=== PATIENT | female | born 1960 | race Caucasian/White ===

== ENCOUNTER → 2024-11-20 13:33 | Outpatient (REF) | payer OTHER, SELFPAY | LOC: RAD 13:33 | PROVIDERS: ATTENDING PHYSICIAN Internal Medicine; FAMILY PHYSICIAN Family Medicine | DX: M54.59 Other low back pain (principal); M51.362 Other intervertebral disc degeneration, lumbar region with discogenic back pain and lower extremity pain; M54.15 Radiculopathy, thoracolumbar region | CPT/HCPCS: 72110 ==